=== PATIENT | female | born 1975 | race Caucasian/White ===

== ENCOUNTER 2017-11-23 14:12 | Outpatient (REF) | payer OTHER, SELFPAY ==
--- NOTE | 2017-11-23 14:00 | PAPFT_PTH ---
PATIENT: Irma Hernandes LOC: N U#:[id number] AGE/SX: 42/F ROOM: RE11/23/[address]: KALLIE Love : 1975 BED: DIS: 11/23/2017 SPEC #: [id number] RECD: 11/23/17 18:19 STATUS: LIZ REZuleyma #: [id number] CINDY: 11/23/17 14:[address]: Zainab Barnes [facility] Cytology RECD BY: Roxanna Starks ENTERED: 11/23/17 18:19 SP TYPE: PAPFT YAMILE DR: Di Sandhu Tissues: 1 - CX/ENDOCX FOR PAP SMEARS Procedures: PAP THIN PREP/[facility] Screening Comments: [id number]
== END 2017-11-23 14:32 ==
LOC: LBN 14:12
PROVIDERS: PCP Family Medicine; Visit Provider Nurse Practitioner Family
DX: Z12.4 Encounter for screening for malignant neoplasm of cervix (principal)
CPT/HCPCS: 88142

== ENCOUNTER 2018-12-29 00:12 | Outpatient (CLI) | payer OTHER, SELFPAY ==
--- NOTE | 2018-12-29 13:14 | DI.MAMMO_ITS ---
EXAM: MAMMO SCREENING CLINICAL HISTORY: Screening, Z12.31 TECHNIQUE: Mammograms were interpreted according to the usual protocol including computer analysis w [employer] CAD system, tomosynthesis and C-view imaging. COMPARISON: 2010 THROUGH 2016 FINDINGS: The breasts are composed of heterogeneously dense tissue, which may obscure small masses, breast dens ity category C. No suspicious masses or suspicious microcalcifications are seen. No skin thickening or abnormal axillary lymph nodes are seen. There has been no significant change from prior exams. IMPRESSION: Category 1, negative mammogram. Yearly screening mammography is recommended. BI-RADS Cat 1 - Negative Breast Density - Category B - Scattered areas of fibroglandular density
== END 2018-12-29 00:32 ==
PROVIDERS: PCP Family Medicine; Visit Provider Nurse Practitioner Family
DX: Z12.31 Encounter for screening mammogram for malignant neoplasm of breast (principal)
CPT/HCPCS: 77063; 77067

== ENCOUNTER 2018-12-29 15:09 | Outpatient (REF) | payer OTHER, SELFPAY ==
--- NOTE | 2018-12-29 14:15 | PAPFT_PTH ---
PATIENT: Irma Hernandes LOC: [facility] U#:[id number] AGE/SX: 43/F ROOM: RE12/29/[address]: KALLIE Love : 1975 BED: DIS: 12/29/2018 SPEC #: [id number] RECD: 12/29/18 17:37 STATUS: LIZ REZuleyma #: [id number] CINDY: 12/29/18 14:[address]: Zainab Barnes DEPT: [facility] Cytology RECD BY: Roxanna Starks ENTERED: 12/29/18 17:37 SP TYPE: PAPFT OTHR DR: Di Sandhu Tissues: 1 - CX/ENDOCX FOR PAP SMEARS Procedures: PAP THIN PREP/UVM Screening Comments: [id number]
[2018-12-30 15:42] LABS: Chlamydia Result Negative; GC Result Negative; Specimen Description URINE
== END 2018-12-29 15:29 ==
LOC: LBN 15:09
PROVIDERS: PCP Family Medicine; Visit Provider Nurse Practitioner Family
DX: Z12.4 Encounter for screening for malignant neoplasm of cervix; Z11.51 Encounter for screening for human papillomavirus (HPV); Z11.3 Encounter for screening for infections with a predominantly sexual mode of transmission
CPT/HCPCS: 87491; 87591; 88142

== ENCOUNTER 2020-01-09 01:17 | Outpatient (CLI) | payer OTHER, SELFPAY ==
--- NOTE | 2020-01-09 16:11 | DI.MAMMO_ITS ---
EXAM: MG MAMMO SCREENING CLINICAL HISTORY: screening TECHNIQUE: Mammograms were interpreted according to the usual protocol including computer analysis w [employer] CAD system, tomosynthesis and C-view imaging. COMPARISON: FINDINGS: The breasts are heterogeneously dense. No dominant mass or clumped microcalcification is identified in either breast. The current examination is compared with previous examinations including December 14 and there has been no gross interval change in appearance in comparison with the prior studies. IMPRESSION: No specific evidence of malignancy at this time. Routine screening examinations are suggested at yea rly intervals due To the family history of breast carcinoma. BI-RADS Category 1 - Negative Breast Density - Category C - Heterogeneously dense
== END 2020-01-09 01:37 ==
PROVIDERS: PCP Family Medicine; Visit Provider Nurse Practitioner Family
DX: Z12.31 Encounter for screening mammogram for malignant neoplasm of breast (principal); Z80.3 Family history of malignant neoplasm of breast
CPT/HCPCS: 77063; 77067

== ENCOUNTER 2020-01-09 15:49 | Outpatient (REF) | payer OTHER, SELFPAY ==
--- NOTE | 2020-01-09 15:00 | PAPFT_PTH ---
PATIENT: Irma Hernandes LOC: N U#:[id number] AGE/SX: 44/F ROOM: RE01/09/[address]: KALLIE Love : 1975 BED: DIS: 01/09/2020 SPEC #: [id number] RECD: 01/09/20 17:22 STATUS: LIZ REZuleyma #: [id number] CINDY: 01/09/20 15:[address]: Zainab Barnes DEPT: [facility] Cytology RECD BY: Roxanna Starks ENTERED: 01/09/20 17:23 SP TYPE: PAPFT OTHR DR: Di Sandhu Tissues: 1 - CX/ENDOCX FOR PAP SMEARS Procedures: PAP THIN PREP/UVM Screening HPV DNA PROBE Comments: [id number]
== END 2020-01-09 16:09 ==
LOC: LBN 15:49
PROVIDERS: PCP Family Medicine; Visit Provider Nurse Practitioner Family
DX: Z85.41 Personal history of malignant neoplasm of cervix uteri (principal); Z12.72 Encounter for screening for malignant neoplasm of vagina; Z90.710 Acquired absence of both cervix and uterus
CPT/HCPCS: 88142; 87624

== ENCOUNTER 2020-01-24 12:11 | Outpatient (REF) | payer OTHER, SELFPAY ==
[2020-01-24 14:17] LABS: Abs Immature Grans 0.02 10^3/uL (0.0-0.06); Absolute Basophil Count 0.05 10^3/uL (0.0-0.2); Absolute Lymphocyte Count 1.76 10^3/uL (1.2-3.4); Absolute Monocyte Count 0.38 10^3/uL (0.1-0.8); Absolute Neutrophil Count 5.21 10^3/uL (1.2-6.7); Basophils % 0.7; Eosinophils % 1.3; HCT 43.4 % (36.0-46.0); HGB 14.8 g/dL (11.2-15.7); Immature Grans % 0.3; Lymphocytes % 23.4; MCHC 34.1 % (32.0-36.0); Monocytes % 5.1; Neutrophils % 69.2; Nucleated RBC 0 %; Platelet Count 294 10^3/uL (130-400); RBC 4.93 10^6/uL (3.93-5.22); RDW 11.7 % (11.7-14.6); RDW-SD 37.7 fL; WBC 7.52 10^3/uL (4.4-10.8)
== END 2020-01-24 12:31 ==
LOC: LBN 12:11
PROVIDERS: PCP Family Medicine; Visit Provider Surgery
DX: K64.4 Residual hemorrhoidal skin tags (principal); K64.8 Other hemorrhoids
CPT/HCPCS: 85025

== ENCOUNTER 2021-02-07 22:41 | Emergency (ER) | payer OTHER, SELFPAY ==
[2021-02-07 22:46] VITALS: BP 158/77; PULSE 90; RESP 20; TEMP 36.4; O2SAT 99
[2021-02-07 22:50] VITALS: RESP 20
[2021-02-07] MEDS: Glucagon 1 MG VIAL IVP (23:10)
--- NOTE | 2021-02-07 23:13 | ED.GENADUL_ITS ---
Discharge Plan Disposition Patient Disposition: [facility] Condition: Serious Discharge Details Clinical Impression: Esophageal foreign body Primary Care Provider: Di Sandhu ED Provider: Roxanna Parsons Home Meds and New Rx's Prescriptions: No Action cholecalciferol (vitamin D3) 1,000 UNIT capsule 1,000 unit PO DAILY RF: 0 Medical Decision Making After a trial of 1 mg of glucagon, effervescent tablets, cola, we are unfortunately unsuccessful in dislodging suspected food bolus, patient will need EGD/GI or surgical intervention Surgery was continued on several occasions, unfortunately secondary to lack of availability we will need to transfer patient to a facility that has on-call surgical services, patient has requested [facility], I spoke with the ER attending, who has accepted patient in transfer and have a surgery team available to perform likely EGD for disimpaction Patient was initially requesting to transport herself via private vehicle with the assistance of her daughter, however on reassessment, patient is willing to be transported via EMS, transportation has been called Patient has been stable throughout this encounter Medical Records Medical records reviewed: Yes I reviewed the patient's medical records. HPI General Mode of arrival: ambulatory . Date/Time Provider Initiated Documentation: 02/07/21 22:43 . Limitations to Documentation: no limitations . Information obtained by: patient . HPI Narrative: This 45-year-old female p resents with reports food bolus. Patient reportedly had a piece of pot roast at plaque and felt it lodged in her esophagus. She states that she attempted:, Water without relief in symptoms. She is unable to tolerate anything p.o. denies difficulty breathing. She states this is happened before but never to this severity. She denies any chest pain or shortness of breath. She denies any dizziness or weakness. She denies any chance of . Related Data Home Medications Medication Instructions Recorded Confirmed cholecalciferol (vitamin D3) 1,000 unit PO DAILY 09/26/12 02/07/21 Allergies Allergy/AdvReac Type Severity Reaction Status Date / Time Penicillins Allergy Severe SOB Verified 02/07/21 22:48 sulfamethoxazole Allergy Intermediate RASH Verified 02/07/21 22:48 [From Bactrim] trimethoprim [From Bactrim] Allergy Intermediate RASH Verified 02/07/21 22:48 PET DANDER, RAG WEED, MOLD, Allergy Intermediate DIFFICULTY Uncoded 02/07/21 22:48 FEATHERS BREATHING General Stated Complaint: GenMedical OMARI: 4 Review of Systems All systems reviewed & are unremarkable except as noted in HPI and below PFSH Active Problem List (Updated 02/08/21 @ 00:08 by UMER Magdaleno) Esophageal foreign body (Acute) Internal and external bleeding hemorrhoids (Acute) Acquired absence of both cervix and uterus (Acute 09/22/11) History of cervical cancer (Chronic) Surgical History (Updated 12/29/18 @ 14:11 by Zainab Barnes NP) Vaginal hysterectomy (~2000) For CIS Family History Father Heart disease Maternal Aunt Stroke maternal Maternal Cousin No problems noted. Maternal Uncle Stroke maternal Social History (Updated 11/18/17 @ 15:40 by Valerie Khalil LPN) Smoking/Tobacco Use Status: Never Smoking risk assessment performed?: Yes Alcohol Intake: never Drug use: Never Substance use type: does not use Current gender identity: female Seatbelt use: always Do you feel safe at home: Yes Do you feel safe in your relationship?: Yes Female Reproductive History Menstrual Menopause type: surgical History History 4 Para Hx # Term Pregnancies 3 Multiple births Hx # Pregnancies Ectopic pregnancies AB induced Hx Number of Living Children AB spontaneous Exam Const General: cooperative and acute distress HENMT Other: No visible foreign body Neck Other: No stridor Resp Effort & Inspection: normal respiratory effort Auscultation: clear to auscultation bilaterally Cardio Rate: regular rate GI Inspection: normal to inspection Neuro General: patient alert and patient oriented x3 Course Vital Signs Vital signs: Vital Signs Temperature 36.4 C L 02/07/21 22:46 Pulse 90 02/07/21 22:46 Respiratory Rate 20 02/07/21 22:46 Blood Pressure 158/77 H 02/07/21 22:46 Pulse Oximetry 99 02/07/21 22:46 Temperature 36.4 C L 02/07/21 22:46 Temperature Source Temporal Artery Scan 02/07/21 22:46 Pulse 90 02/07/21 22:46 Respiratory Rate 20 02/07/21 22:50 Respiratory Effort Non-Labored 02/07/21 22:50 Respiratory Depth Normal 02/07/21 22:50 Respiratory Pattern Normal 02/07/21 22:50 Blood Pressure 158/77 H 02/07/21 22:46 Blood Pressure Position Sitting 02/07/21 22:46 Pulse Oximetry 99 02/07/21 22:46 Oxygen Delivery Method Room Air 02/07/21 22:46 Oxygen Flow Rate 0 02/07/21 22:46 Pain Level 0 02/07/21 22:46
[2021-02-08 00:29] LABS: Source Nasal/Nares
[2021-02-08 00:33] VITALS: O2SAT 98
[2021-02-08 01:13] LABS: COVID-19 PCR Negative (Negative)
== END 2021-02-08 00:31 | disposition short-term general hospital (02) ==
PROVIDERS: Emergency Provider Physician Assistant; PCP Family Medicine
DX: T18.128A Food in esophagus causing other injury, initial encounter (principal)
CPT/HCPCS: 87635; 96374; 99285; J1610

== ENCOUNTER → 2021-08-08 01:06 | Outpatient (CLI) | payer OTHER, SELFPAY ==
--- NOTE | 2021-08-08 08:00 | DI.MAMMO_ITS ---
Exam(s) MAMMO SCREENING EXAM: MAMMO SCREENING CLINICAL HISTORY: screening, Z12.39 TECHNIQUE: Mammograms were interpreted according to the usual protocol including computer analysis w [employer] CAD system, tomosynthesis and C-view imaging. COMPARISON: No exams were available for comparison FINDINGS: The breasts are composed of scattered fibroglandular densities, Breast Density category B. No suspicious masses or suspicious microcalcifications are seen. No skin thickening or abnormal axillary lymph nodes are seen. There has been no significant change from prior exams. IMPRESSION: BI-RADS Category 1, Negative mammogram Yearly screening mammography is recommended. Breast Density - Category B, scattered fibroglandular densities. A negative radiographic report should not delay biopsy if a dominant or clinically suspicious mass is present. Up to ten percent of cancers are not identified on mammography. A negative report may reinforce clinical impression. Adenosis and dense breasts may obscure an underlying neoplasm. False positive reports average 6 to 10%. Patient will receive a letter notifying them of these results.
== END ==
PROVIDERS: PCP Family Medicine; Visit Provider Nurse Practitioner Family
DX: Z12.31 Encounter for screening mammogram for malignant neoplasm of breast (principal)
CPT/HCPCS: 77063; 77067

== ENCOUNTER 2021-08-08 16:39 | Outpatient (REF) | payer OTHER, SELFPAY ==
--- NOTE | 2021-08-08 15:00 | PAPFT_PTH ---
PATIENT: Irma Hernandes LOC: [facility] U#:[id number] AGE/SX: 45/F ROOM: RE08/08/[address]: KALLIE Love : 1975 BED: DIS: 08/08/2021 SPEC #: [id number] RECD: 08/08/21 17:08 STATUS: LIZ REZuleyma #: [id number] CINDY: 08/08/21 15:[address]: Zainab Barnes DEPT: [facility] Cytology RECD BY: Roxanna Starks ENTERED: 08/08/21 17:08 SP TYPE: PAPFT OTHR DR: Di Sandhu Tissues: 1 - CX/ENDOCX FOR PAP SMEARS Procedures: PAP THIN PREP/UVM Screening HPV DNA PROBE Comments: [id number]
== END 2021-08-08 16:40 | disposition home or self-care (01) ==
LOC: LBN 16:39
PROVIDERS: PCP Family Medicine; Visit Provider Nurse Practitioner Family
DX: Z12.72 Encounter for screening for malignant neoplasm of vagina (principal); R87.620 Atypical squamous cells of undetermined significance on cytologic smear of vagina (ASC-US); Z11.51 Encounter for screening for human papillomavirus (HPV); Z85.41 Personal history of malignant neoplasm of cervix uteri
CPT/HCPCS: 88142; 87624

== ENCOUNTER → 2022-02-06 11:21 | Outpatient (CLI) | payer OTHER, SELFPAY ==
--- NOTE | 2022-02-06 | DI.RAD_ITS ---
Exam(s) XR CHEST 2V PA LATERAL EXAM: XR CHEST 2V PA LATERAL CLINICAL HISTORY: CHRONIC COUGH--R05.3 TECHNIQUE: 2D digital imaging was performed. COMPARISON: No exams were available for comparison FINDINGS: The heart is not enlarged. The lungs are clear and well expanded. No pleural effusion seen. Mediastin al contours appear intact. IMPRESSION: Normal chest. RADIATION DOSE DELIVERED: Total DLP
== END ==
PROVIDERS: PCP Family Medicine; Visit Provider Family Medicine
DX: R05.3 Chronic cough (principal)
CPT/HCPCS: 71046

== ENCOUNTER 2022-02-06 15:52 | Outpatient (REF) | payer OTHER, SELFPAY ==
[2022-02-06 13:58] LABS: HCT 42.9 % (36.0-46.0); HGB 14.4 g/dL (11.2-15.7); MCH 30.1 pg (27.0-33.0); MCHC 33.6 % (32.0-36.0); MCV 90 fL (80-95); MPV 9.8 fL (8.0-11.0); Platelet Count 334 10^3/uL (130-400); RBC 4.78 10^6/uL (3.93-5.22); RDW 11.4 % (11.7-14.6); RDW-SD 37.3 fL; WBC 5.61 10^3/uL (4.4-10.8)
[2022-02-06 14:17] LABS: ALT 29 U/L (14-59); AST 18 U/L (15-37); Albumin 4.2 g/dL (3.4-5.0); Alkaline Phosphatase 58 U/L (46-116); Anion Gap 4.9 mmol/L (3-11); BUN 8 mg/dL (7-18); Bilirubin, Total 0.9 mg/dL (0.2-1.0); CO2 31.1 mmol/L (21.0-32.0); CREATININE 0.8 mg/dL (0.55-1.02); Calcium 9.5 mg/dL (8.5-10.1); Calculated LDL 99 mg/dL (<100); Chloride 102 mmol/L (98-107); Cholesterol 180 mg/dL (<200); Estimated GFR 92.54 (mL/min/1.73m2); Glucose 89 mg/dL (74-106); HDL Cholesterol 62 mg/dL (40-60); Potassium 4.5 mmol/L (3.5-5.1); Sodium 138 mmol/L (136-145); TSH (W/Ref FT4) 1.52 uIU/mL (0.36-3.74); Total Protein 7.2 g/dL (6.4-8.2); Triglyceride 96 mg/dL (<150)
[2022-02-09 10:44] LABS: HIV-1/2 Ag & Ab Screen Negative (Negative)
[2022-02-09 10:49] LABS: Hepatitis C Ab w Rflx HCV PCR Negative (Negative)
== END 2022-02-06 15:53 | disposition home or self-care (01) ==
LOC: NCHCN 15:52
PROVIDERS: PCP Family Medicine; Visit Provider Family Medicine
DX: R53.83 Other fatigue (principal); R06.09 Other forms of dyspnea; R05.3 Chronic cough; Z00.00 Encounter for general adult medical examination without abnormal findings; Z11.59 Encounter for screening for other viral diseases; Z11.4 Encounter for screening for human immunodeficiency virus [HIV]
CPT/HCPCS: 80053; 80061; 85027; 86803; 87389; 84443

== ENCOUNTER 2022-05-19 02:37 | Outpatient (CLI) | payer OTHER, SELFPAY ==
--- NOTE | 2022-05-19 07:30 | DI.US_ITS ---
APPROVED REPORT EXAM: Comprehensive 2D, Doppler, and color-flow Echocardiogram Patient Location: Out-Patient Front End Drupal Developer: Christi Woo RDCS (AE) Indications: Chest pain, SOB, LUCERO post COVID Other Information Study Quality: Adequate Conclusion Normal left ventricular wall thickness and chamber size. Estimated ejection fraction is 60%. Wall m otion is normal Normal right ventricular size and systolic function Both atria are normal in size There is no structural or hemodynamically significant valvular disease Normal estimated right ventricular systolic pressure 22 mmHg Wall motion Left Ventricle The left ventricle is normal size. The left ventricular systolic function is normal. The left ventric ular ejection fraction is within the normal range. There is normal left ventricular wall thickness. T here is normal LV segmental wall motion. There is no ventricular septal defect visualized. LVEF is 60 %. Right Ventricle The right ventricle is normal size. The right ventricular systolic function is normal. The RVSP is 21 .9 mmHg. Atria The left atrium size is normal. The right atrium size is normal. The interatrial septum is intact wit h no evidence for an atrial septal defect. Aortic Valve The aortic valve is normal in structure. Aortic valve is trileaflet. There is no aortic valvular sten osis. No aortic regurgitation is present. Mitral Valve The mitral valve is normal in structure. No evidence of mitral valve stenosis. Mild mitral regurgitat ion. Tricuspid Valve The tricuspid valve is normal in structure. There is no tricuspid valve stenosis. Trace to mild tricu spid regurgitation. Pulmonic Valve The pulmonary valve is normal in structure. There is no pulmonic valvular stenosis. Mild pulmonic reg urgitation. Great Vessels The aortic root is normal in size. The ascending aorta is normal in size. Aortic arch is normal in ca liber. IVC is normal in size and collapses >50% with inspiration. Pericardium There is no pericardial effusion. 2D Dimensions IVSD d PLAX 0.81 cm F: 0.6-1.0 LV Vol A2C d MOD 103.5 mL LVPW d PLAX 0.84 cm F: 0.6 - 1.0 LV Vol A4C d MOD 96.4 mL LVID d PLAX 4.69 cm F: 3.8 - 5.2 LA vol/ BSA A2C s A-L 19.3 mL/m2 LVDs 3.05 cm F: 2.2 - 3.5 LA vol/ BSA A4C s A-L 20.4 mL/m2 Ao Root d 2.75 cm F: 2.7 - 3.3 LA Vol/ BSA Biplane s A-L 20.9 mL/m2 RA Area A4C 10.12 cm2 LA Area A4C s MOD 16.31 cm2 RA Vol/ BSA A4C s A-L 10.1 mL/m2 LA Area A2C s MOD 15.07 cm2 Ao Asc Diam d 3.06 cm F: 2.3 - 3.1 LV EF A4C MOD 60.0 % LV EF Teichholz 63.6 % LV EF A2C MOD 60.1 % LVEF (Gustafson's) 59.17 % F: 54 - 74 LV EF Biplane MOD 59.2 % LV Volume 75.95 mL F: 46 - 106 SV 59.70 mL LV Volume Index 38.35 mL/m2 F: 29 - 61 SV Index 30.17 mL/m2 LV Vol Biplane MOD 100.9 mL FS 34.50 % M-Mode TAPSE 2.04 cm (M/F) >1.7 LV Diastology MV E' medial 0.085 (>0.07 m/s) E/A Ratio 1.9 LV E/e MED 11.20 (<14) MV E Vmax 0.95 (0.4-1.3 m/s) MV E' lateral 0.173 (>0.1 m/s) MV A Vmax 0.50 (0.4-1.3 m/s) LV E/e LAT 5.50 (<14) MV E/A Ratio 1.74 MV E/E' medial 11.23 MV E/E' lateral 5.51 Aortic Valve LVOT Area 3.26 cm2 AoV Area Vmax 2.34 cm2 LVOT Vmax 1.20 m/s AoV Area/ BSA (Vmax) 1.18 cm2/m2 LVOT Mean Luis A. 0.81 m/s DARREL Mean Luis A. 2.26 cm2 LVOT Peak Grad 5.7 mmHg DARREL Mean Luis A. Index 1.14 cm2/m2 LVOT Mean Grad 3.0 mmHg LVOT VTI 0.307 m LVOT Diam s 2.00 cm AoV Vmax 1.66 m/s Velocity Ratio 0.72 AoV Mean Luis A. 1.16 m/s AoV Peak Grad 11.1 mmHg LVOT SV 100.13 mL AoV Mean Grad 5.9 mmHg AoV VTI 0.355 m AoV Area VTI 2.82 cm2 AoV Area/ BSA (VTI) 1.43 cm/m2 Mitral Valve MV DT 225 (160-240 msec) MV PHT 65 msec MV Area PHT 3.37 cm2 Pulmonary Valve PV Vmax 1.12 (0.5-1.5 m/s) RVOT Peak Gr. 2.40 mmHg PV Peak Grad 5.0 mmHg RVOT Mean Gr. 1.30 mmHg PV Mean Grad 2.6 mmHg RVOT VTI 0.211 m PV VTI 0.273 m RVOT Vmax 0.78 m/s Tricuspid Valve TR Peak Grad 18.9 mmHg TR Vmax 2.18 m/s RA Pressure 3.00 mmHg RVSP (TR) 21.9 mmHg
== END 2022-05-19 02:57 ==
PROVIDERS: PCP Family Medicine; Visit Provider Nurse Practitioner Family
DX: R07.9 Chest pain, unspecified (principal); R06.02 Shortness of breath; U09.9 Post COVID-19 condition, unspecified; R06.00 Dyspnea, unspecified
CPT/HCPCS: 93306

== ENCOUNTER 2022-06-09 17:20 | Outpatient (REF) | payer OTHER, SELFPAY ==
[2022-06-09 12:06] LABS: Abs Immature Grans 0.01 10^3/uL (0.0-0.06); Absolute Basophil Count 0.02 10^3/uL (0.0-0.2); Absolute Lymphocyte Count 2.29 10^3/uL (1.2-3.4); Absolute Monocyte Count 0.37 10^3/uL (0.1-0.8); Absolute Neutrophil Count 2.52 10^3/uL (1.2-6.7); Basophils % 0.4; Eosinophils % 1.9; HCT 41.6 % (36.0-46.0); HGB 14.6 g/dL (11.2-15.7); Immature Grans % 0.2; Lymphocytes % 43.1; MCH 30.3 pg (27.0-33.0); MCHC 35.1 % (32.0-36.0); MCV 86 fL (80-95); MPV 9.3 fL (8.0-11.0); Neutrophils % 47.4; Platelet Count 308 10^3/uL (130-400); RBC 4.82 10^6/uL (3.93-5.22); RDW 11.5 % (11.7-14.6); RDW-SD 36.1 fL; WBC 5.31 10^3/uL (4.4-10.8)
[2022-06-09 13:02] LABS: Vitamin D 25 Total 43.1 ng/mL (30-100)
[2022-06-09 13:08] LABS: Anion Gap 7.6 mmol/L (3-11); BUN 8 mg/dL (7-18); CO2 29.4 mmol/L (21.0-32.0); CREATININE 0.8 mg/dL (0.55-1.02); Calcium 9.4 mg/dL (8.5-10.1); Chloride 104 mmol/L (98-107); Estimated GFR 92.54 (mL/min/1.73m2); Glucose 92 mg/dL (74-106); Potassium 4.2 mmol/L (3.5-5.1); Sodium 141 mmol/L (136-145); Vitamin B12 1022 pg/mL (193-986)
[2022-06-10 11:15] LABS: IgE 9 IU/mL (<158)
== END 2022-06-09 17:21 | disposition home or self-care (01) ==
LOC: LBN 17:20
PROVIDERS: PCP Family Medicine; Visit Provider Student in an Organized Health Care Education/Training Program
DX: J45.909 Unspecified asthma, uncomplicated (principal); U09.9 Post COVID-19 condition, unspecified; E56.9 Vitamin deficiency, unspecified
CPT/HCPCS: 80048; 82306; 82607; 82785; 85025

== ENCOUNTER 2022-06-16 04:02 | Outpatient (CLI) | payer OTHER, SELFPAY ==
[2022-06-16] MEDS: Albuterol HFA 18 GM 200 PUFF INH IH (16:33)
[2022-06-16] MEDS: Inhaler, Assist Device 1 EACH MC (16:33)
--- NOTE | 2022-06-18 10:15 | W.PFT ---
Date of service: 06/16/22 Time of Service: 15:01 Pulmonary Function Test Result Indications: [facility] Interpretation Spirometry: There is moderate airflow limitation. No bronchodilator response. Flow volume loop is concerning for a fixed obstruction Lung Volumes: Normal volumes Diffusion Capacity: Normal diffusion Airway Pressure: Increased airways resistance Impression Moderate airflow obstruction with increased airways resistance and a flow volume loop concerning for fixed obstruction. Clinical Correlation therefore is recommended.
== END 2022-06-16 04:03 | disposition home or self-care (01) ==
LOC: RT 04:02
PROVIDERS: PCP Family Medicine; Visit Provider Student in an Organized Health Care Education/Training Program
DX: U09.9 Post COVID-19 condition, unspecified (principal)
CPT/HCPCS: 94060; 94726; 94729

== ENCOUNTER 2022-07-13 18:07 | Outpatient (REF) | payer OTHER, SELFPAY ==
[2022-07-13 18:28] LABS: ESR 8 mm/hr (0-20)
[2022-07-13 18:38] LABS: C-Reactive Protein 0.15 mg/dL (0.0-0.3)
[2022-07-15 13:00] LABS: Leukemia/Lymphoma by FC (Blood (See below)
== END 2022-07-13 18:08 | disposition home or self-care (01) ==
LOC: LBN 18:07
PROVIDERS: PCP Family Medicine; Visit Provider Student in an Organized Health Care Education/Training Program
DX: J38.6 Stenosis of larynx (principal)
CPT/HCPCS: 85652; 88185; 86140; 88184; 88189

== ENCOUNTER 2022-10-02 02:24 | Outpatient (CLI) | payer OTHER, SELFPAY ==
[2022-10-02] MEDS: Albuterol HFA 18 GM 200 PUFF INH IH (16:58)
[2022-10-02] MEDS: Inhaler, Assist Device 1 EACH MC (16:58)
--- NOTE | 2022-10-05 16:18 | W.PFT ---
Date of service: 10/02/22 Time of Service: 15:32 Pulmonary Function Test Result Indications: Idiopathic subglottic tracheal stenosis Interpretation Spirometry: There is no airflow limitation. No significant bronchodilator response. Lung Volumes: Normal lung volumes Diffusion Capacity: Normal diffusion Airway Pressure: Normal airways resistance Impression Normal pulmonary function testing. Note: As compared to 06/16/22, the flow volume loop no longer appears to have a fixed obstruction and her airways resistance is significantly improved. The remained of her lung function is stable. Clinical Correlation therefore is recommended.
== END 2022-10-02 02:25 | disposition home or self-care (01) ==
LOC: RT 02:25
PROVIDERS: PCP Family Medicine; Visit Provider Student in an Organized Health Care Education/Training Program
DX: Q31.1 Congenital subglottic stenosis (principal)
CPT/HCPCS: 94060; 94726; 94729

== ENCOUNTER → 2023-03-24 02:20 | Outpatient (CLI) | payer OTHER, SELFPAY ==
--- NOTE | 2023-03-24 10:33 | DI.RAD_ITS ---
Exam(s) RF BARIUM SWALLOW EXAM: RF BARIUM SWALLOW CLINICAL HISTORY: H/O esophageal dilation,ESOPHAGEAL FOREIGN BODY,SUBLOTTIC STENOSIS,t18.108A TECHNIQUE: 2D and realtime digital imaging was performed. CONTRAST MATERIAL: Oral barium contrast was administered. COMPARISON: No exams were available for comparison FINDINGS: CHEST X-RAY: The heart and pulmonary vasculature are within normal limits. The lungs are clear. No pl eural effusion or pneumothorax is present. The bones are within normal limits for the patient's age. ESOPHAGRAM: The esophagus is patent with no evidence for erosions, fold thickening, strictures, or ma sses. With regards to the motility, there is a normal primary stripping wave. No tertiary contraction s were noted. There does appear to be a small hiatal hernia. No gastroesophageal reflux is present. IMPRESSION: 1. Normal esophogram 2. No evidence of esophageal stenosis/narrowing. RADIATION DOSE DELIVERED: chintan Tucker=18.8 mGy
[2023-03-24] MEDS: Barium Sulfate 700 MG TAB PO (10:34)
[2023-03-24] MEDS: Barium Sulfate 98% W/W 140 ML BTL PO (10:35)
[2023-03-24] MEDS: Barium Sulfate 60% W/V 355 ML BTL PO (10:35)
== END ==
PROVIDERS: PCP Family Medicine; Visit Provider Physician Assistant Surgical
DX: J38.6 Stenosis of larynx (principal); K44.9 Diaphragmatic hernia without obstruction or gangrene; Z98.890 Other specified postprocedural states
CPT/HCPCS: 74221; J3490

== ENCOUNTER 2023-09-16 01:02 | Outpatient (CLI) | payer OTHER, SELFPAY ==
[2023-09-16] MEDS: Levalbuterol HFA 15 GM INH 4 PUFF IH (09:29)
[2023-09-16] MEDS: Inhaler, Assist Device 1 EACH MC (09:29)
--- NOTE | 2023-09-21 11:12 | W.PFT ---
Date of service: 09/16/23 Time of Service: 08:00 Pulmonary Function Test Result Requesting Provider Janeth Hughes Indications: Tracheal Stenosis Interpretation Spirometry: Normal Lung Volumes: Normal Diffusion Capacity: normal Impression Normal spirometry, lung volumes and diffusion. Flow volume curve has flattening of inspiratory and expiratory curve c/w her hx/o tracheal stenosis. Clinical Correlation therefore is recommended.
== END 2023-09-16 01:03 | disposition home or self-care (01) ==
PROVIDERS: PCP Family Medicine; Visit Provider Physician Assistant Surgical
DX: J39.8 Other specified diseases of upper respiratory tract (principal)
CPT/HCPCS: 00123; 94060; 94726; 94729

== ENCOUNTER 2024-03-21 10:40 | Emergency (ER) | payer OTHER, SELFPAY ==
[2024-03-21] VITALS (13 sets, daily range): BP systolic 196; BP diastolic 78; PULSE 59–68; RESP 10–22; TEMP 36.8; O2SAT 98–100
--- NOTE | 2024-03-21 10:30 | RT.EKG_ITS ---
APPROVED REPORT Exam: Resting ECG Reason for Exam: SOB Patient Location: E HR:68 bpm ECG Measurements Heart Rate 68 AXIS OH 138 P 47 QRSd 86 QRS 41 QT 402 T 52 QTc 427 Conclusion Sinus rhythm...normal P axis, V-rate 60- 99 No STEMI
--- NOTE | 2024-03-21 11:00 | DI.RAD_ITS ---
Exam(s) XR CHEST 2V PA LATERAL EXAM: XR CHEST 2V PA LATERAL CLINICAL HISTORY: Chest pain TECHNIQUE: 2D digital imaging was performed of the chest. Two images were obtained. PA and lateral views were obtained. COMPARISON: CR XR CHEST 2V PA LATERAL from 02/06/2022 FINDINGS: MEDIASTINUM: Normal. HEART: Normal. PULMONARY VASCULATURE: Normal. LUNGS: Clear. PLEURAL SPACE: No pleural effusion or pneumothorax. BONE:Within normal limits for the patient's age. OTHER FINDINGS:Normal. IMPRESSION: No acute pulmonary findings. DATA REPOSITORY: RADIATION DOSE DELIVERED:
[2024-03-21 11:18] LABS: Abs Immature Grans 0.03 10^3/uL (0.0-0.06); Absolute Basophil Count 0.04 10^3/uL (0.0-0.2); Absolute Eosinophil Count 0.25 10^3/uL (0.0-0.7); Absolute Lymphocyte Count 2.46 10^3/uL (1.2-3.4); Absolute Monocyte Count 0.49 10^3/uL (0.1-0.8); Absolute Neutrophil Count 4.17 10^3/uL (1.2-6.7); Basophils % 0.5 %; Eosinophils % 3.4 %; HCT 42.6 % (36.0-46.0); HGB 14.9 g/dL (11.2-15.7); Immature Grans % 0.4 %; Lymphocytes % 33.1 %; MCH 30.5 pg (27.0-33.0); MCV 87 fL (80-95); MPV 9.1 fL (8.0-11.0); Monocytes % 6.6 %; Platelet Count 279 10^3/uL (130-400); RBC 4.88 10^6/uL (3.93-5.22); RDW 11.4 % (11.7-14.6); RDW-SD 36.8 fL; WBC 7.44 10^3/uL (4.4-10.8)
[2024-03-21 11:36] LABS: HCG Qual (Serum) Negative
[2024-03-21 11:41] LABS: Anion Gap 6.4 mmol/L (3-11); BUN 10 mg/dL (7-18); CO2 29.6 mmol/L (21.0-32.0); CREATININE 0.8 mg/dL (0.55-1.02); Calcium 9.7 mg/dL (8.5-10.1); Chloride 103 mmol/L (98-107); Glucose 106 mg/dL (74-106); Lipase 27 U/L (<78); Potassium 3.6 mmol/L (3.5-5.1); Sodium 139 mmol/L (136-145); Troponin I 6 ng/L (<or=51)
[2024-03-21 12:30] LABS: Troponin I 4 ng/L (<or=51)
--- NOTE | 2024-03-21 12:33 | ED.GENADUL_ITS ---
Discharge Plan Disposition Patient Disposition: Home Discharge Details Clinical Impression: Chest pain, unspecified Primary Care Provider: Di Sandhu ED Provider: Bunny West Home Meds and New Rx's Prescriptions: Continued tumeric 500 mg PO DAILY zinc gluconate 50 mg tablet 50 mg PO DAILY budesonide 0.25 mg/2 mL suspension for nebulization 0.25 mg inhalation BID Qty: 60 6RF cholecalciferol (vitamin D3) 1,000 UNIT capsule 1,000 unit PO DAILY pantoprazole 40 mg tablet,delayed release (DR/EC) 40 mg PO DAILY PRN Discharge Instructions Instructions: Chest pain Additional Instructions: You are seen in the emergency department for your chest pain. Your blood work shows no sign of a heart attack. Your x-ray showed no sign of pneumonia. Please follow-up with your primary care provider later this month. Please return to emergency department if you develop shortness of breath or if you pass out. Discharge Data Discharge Date/Time-TO BE ENTERED AT DEPARTURE: 03/21/24 12:50 HPI General Date/Time Provider Initiated Documentation: 03/21/24 10:54 . HPI Narrative: MDM This is an overall very well-appearing normothermic and not tachycardic 48-year-old female with chest pain concerning for the possibility of ACS for which patient had 2 troponins which were negative and reassuring against ACS. She had a nonischemic ECG. I considered PE however she is PERC negative so I did not send a D-dimer. No trauma to chest to suggest pneumothorax and chest x- ray is reassuring. No fevers or cough to suggest pneumonia. Not hypotensive nor a dialysis patient to suggest increased risk for cardiac tamponade. No history of recent emesis to suggest increased risk for esophageal rupture. No rash to chest to suggest zoster. I met with the patient and discussed her reassuring evaluation. I discussed that she should follow-up with her primary care provider in the next month. I advised that she should return to the ED if she developed chest pain associated with arm pain if she passed out or develops any chest pain associated with sweating. She understood her return indications and was discharged with empiric trial of expectant outpatient management. Diagnostic interpretations performed by me: Per my independent interpretation chest x-ray shows: No acute cardiopulmonary process Per my independent interpretation EKG shows: Narrow complex normal sinus rhythm at a rate of 68. Normal axis. Intervals within normal limits. No ST segment abnormalities. No T wave versions HPI The patient presents for evaluation of chest pain and shortness of breath. She reports experiencing intermittent chest pain and shortness of breath, which she attributes to her known condition of idiopathic systolic murmurs. She underwent a medical procedure 3 weeks prior, after which she expected her symptoms to subside. However, the chest pain has persisted. She did not experience chest pain on the day of the procedure. She recalls an episode of vomiting due to severe coughing prior to the procedure. She reports no recent infections or fevers, although she notes that her temperature was slightly elevated at 99 during a pulmonology visit, compared to her usual baseline of 97. She reports no history of high cholesterol, diabetes, or hypertension, and has not had blood work done since 2020, at which time all results were normal. She is a non-smoker and does not consume alcohol or use illicit drugs. She reports no presence of a rash on her chest or any history of thromboembolic events in her legs or lungs. She is not currently on hormone therapy and has not experienced any trauma to her chest. Exam General: Well-appearing in no acute distress speaking in complete sentences. Head: Normocephalic, atraumatic. Eye: Extraocular eye movements intact. No conjunctival injection. No scleral icterus. Ear, nose, mouth, throat: Grossly normal inspection. Normal voice, handling secretions normally. Neck: Trachea midline. Cardiovascular: Well-perfused distal extremities. Regular rate and rhythm Respiratory: Nonlabored respiration. Clear lungs bilaterally Gastrointestinal: Nondistended abdomen. Musculoskeletal: No edema. Moving all 4 extremities spontaneously. Skin: Normal for age and race, grossly normal temperature and turgor. No acute rash. Neurologic: Alert and appropriate, no apparent acute deficits. Psychiatric: Mood and manner are appropriate. Grooming and personal hygiene are appropriate. Related Data Home Medications ?Medication ?Instructions ?Recorded ?Confirmed cholecalciferol (vitamin D3) 25 1,000 unit PO DAILY 09/26/12 03/21/24 mcg (1,000 unit) capsule tumeric 500 mg PO DAILY 06/09/22 03/21/24 zinc gluconate 50 mg tablet 50 mg PO DAILY 03/16/23 03/21/24 pantoprazole 40 mg tablet,delayed 40 mg PO DAILY PRN 03/13/24 03/21/24 release budesonide 0.25 mg/2 mL suspension 0.25 mg (2 mL) inhalation BID #60 03/16/24 03/21/24 for nebulization mL Previous Rx's ?Medication ?Instructions ?Recorded budesonide 0.25 mg/2 mL suspension 0.25 mg (2 mL) inhalation BID #60 03/16/24 for nebulization mL Allergies Allergy/AdvReac Type Severity Reaction Status Date / Time Penicillins Allergy Severe SOB Verified 03/21/24 12:03 sulfamethoxazole (From Allergy Intermediate RASH Verified 03/21/24 12:03 Bactrim) trimethoprim (From Bactrim) Allergy Intermediate RASH Verified 03/21/24 12:03 PET DANDER, RAG WEED, MOLD, Allergy Intermediate DIFFICULTY Uncoded 03/21/24 12:03 FEATHERS BREATHING General Stated Complaint: SOB/SuddenOnset MOARI: 3 Course Vital Signs Vital signs: Vital Signs Temperature 36.8 C 03/21/24 10:43 Pulse 68 03/21/24 10:43 Respiratory Rate 20 03/21/24 10:43 Blood Pressure 196/78 H 03/21/24 10:43 Pulse Oximetry 100 03/21/24 10:43 Temperature 36.8 C 03/21/24 10:43 Pulse 68 03/21/24 10:43 Pulse 68 03/21/24 12:30 Respiratory Rate 18 03/21/24 12:30 Respiratory Effort Normal, Non-Labored 03/21/24 10:58 Respiratory Depth Normal 03/21/24 10:58 Respiratory Pattern Tachypnea 03/21/24 10:58 Blood Pressure 196/78 H 03/21/24 10:43 Blood Pressure Position Sitting 03/21/24 10:43 Pulse Oximetry 98 03/21/24 12:30 Oxygen Delivery Method Room Air 03/21/24 10:43 Oxygen Flow Rate 0 03/21/24 10:43 Pain Level 4 03/21/24 10:43 Lab/Test Results Lab/Test Results: Laboratory Tests Range/Units 03/21/24 03/21/24 10:55 11:58 WBC (4.4-10.8) 10^3/uL 7.44 RBC (3.93-5.22) 10^6/uL 4.88 Hgb (11.2-15.7) g/dL 14.9 Hct (36.0-46.0) % 42.6 MCV (80-95) fL 87 MCH (27.0-33.0) pg 30.5 MCHC (32.0-36.0) % 35.0 RDW (11.7-14.6) % 11.4 L Plt Count (130-400) 10^3/uL 279 MPV (8.0-11.0) fL 9.1 Immature Gran % % 0.4 Neutrophils % % 56.0 Lymphocytes % % 33.1 Monocytes % % 6.6 Eosinophils % % 3.4 Basophils % % 0.5 Nucleated RBC % (0.0-0.3) % 0.0 Absolute Neutrophils (1.2-6.7) 10^3/uL 4.17 Absolute Lymphocytes (1.2-3.4) 10^3/uL 2.46 Absolute Monocytes (0.1-0.8) 10^3/uL 0.49 Absolute Eosinophils (0.0-0.7) 10^3/uL 0.25 Absolute Basophils (0.0-0.2) 10^3/uL 0.04 Sodium (136-145) mmol/L 139 Potassium (3.5-5.1) mmol/L 3.6 Chloride (98-107) mmol/L 103 Carbon Dioxide (21.0-32.0) mmol/L 29.6 Anion Gap (3-11) mmol/L 6.4 BUN (7-18) mg/dL 10 Creatinine (0.55-1.02) mg/dL 0.8 Est GFR (CKD-EPI 2020) (mL/min/1.73m2) 91.40 Glucose (74-106) mg/dL 106 Calcium (8.5-10.1) mg/dL 9.7 Troponin I (<or=51) ng/L 6 4 Lipase (<78) U/L 27 Serum HCG, Qual Negative Medical Decision Making Quality:SDOH Health Related Social Needs: No Data to Display PFSH All Active Problems (Updated 03/21/24 @ 12:34 by Bunny West MD) Chest pain, unspecified (Acute) Idiopathic subglottic tracheal stenosis (Acute) Subglottic stenosis (Acute) Airway obstruction (Acute) Stridor (Acute) Vitamin deficiency (Acute) Asthma (Chronic) 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) Obesity (Chronic) GERD (gastroesophageal reflux disease) (Chronic) Allergic rhinitis (Acute) Chronic cough (Acute) SOB (shortness of breath) (Acute) Chest pain (Acute) other pain Esophageal foreign body (Acute) Internal and external bleeding hemorrhoids (Acute) Acquired absence of both cervix and uterus (Acute 09/22/11) History of cervical cancer (Chronic) Surgical History Vaginal hysterectomy (~2000) For CIS Family History (Updated 06/09/22 @ 10:30 by Edwige Aceves) Father Heart disease Maternal Aunt Stroke maternal Maternal Uncle Stroke maternal Heart disease Social History Smoking/Tobacco Use Status: Never Smoking risk assessment performed?: Yes Alcohol Intake: never Drug use: Never Substance use type: does not use Housing: house Current gender identity: female Seatbelt use: always Do you feel safe at home: Yes Do you feel safe in your relationship?: Yes Female Reproductive History Menstrual Menopause type: surgical History History 4 Para Hx # Term Pregnancies 3 Multiple births Hx # Pregnancies Ectopic pregnancies AB induced Hx Number of Living Children AB spontaneous
== END 2024-03-21 12:50 | disposition home or self-care (01) ==
PROVIDERS: Emergency Provider Emergency Medicine; PCP Family Medicine
DX: R07.9 Chest pain, unspecified (principal); R06.02 Shortness of breath
CPT/HCPCS: 36415; 80048; 83690; 93005; 99284; 71046; 84484; 84703; 85025; 93010; 99283

== ENCOUNTER 2024-05-19 21:46 | Outpatient (REF) | payer OTHER, SELFPAY ==
[2024-05-19 23:08] LABS: Hemoglobin A1C 5.8 % (<5.7)
== END 2024-05-19 21:47 | disposition home or self-care (01) ==
LOC: NCHCN 21:46
PROVIDERS: PCP Family Medicine; Visit Provider Family Medicine
DX: R63.5 Abnormal weight gain (principal)
CPT/HCPCS: 83036; 84443

== ENCOUNTER 2024-06-12 01:18 | Outpatient (CLI) | payer OTHER, SELFPAY ==
--- NOTE | 2024-06-12 | DI.MAMMO_ITS ---
Exam(s) MAMMO SCREENING EXAM: MAMMO SCREENING CLINICAL HISTORY: Screening, Z12.31 TECHNIQUE: Bilateral full field digital CC and MLO mammographic images were obtained with 3D tomosyn thesis and utilizing computer aided detection (CAD). COMPARISON: Available for comparison. FINDINGS: Masses/Architectural Distortion: None seen. Microcalcifications: No suspicious pleomorphic-type are seen. Skin Thickening/Nipple Retraction: None. IMPRESSION: 1. No significant interval change with no specific features of malignancy noted. 2. Unless there is more urgent need, screening mammography is recommended, as per [employer] guidelines. BI-RADS Category 1 - Negative Breast Density - Category B - Scattered areas of fibroglandular density Breast density category C or D implies that the patient has dense breast tissue. Dense breast tissue is very common and is not abnormal but dense breast tissue can make it harder to find cancer on a ma mmogram. Also, dense breast tissue may increase their breast cancer risk. This information about the result of the mammogram report was provided to the patient to raise their awareness. Use this report when you speak with the patient about their risks for breast cancer, which includes their family hist ory. At that time, you may recommend for more screening tests (Ultrasound or MRI) as they might be us eful based on their risk. A negative radiographic report should not delay biopsy if a dominant or clinically suspicious mass is present. Up to ten percent of cancers are not identified on mammography. A negative report may reinforce clinical impression. Adenosis and dense breasts may obscure an underlying neoplasm. False positive reports average 6 to 10%. Patient will receive a letter notifying them of these results.
== END 2024-06-12 01:38 ==
LOC: DI 01:18
PROVIDERS: PCP Family Medicine; Visit Provider Family Medicine
DX: Z12.31 Encounter for screening mammogram for malignant neoplasm of breast (principal); R92.323 Mammographic fibroglandular density, bilateral breasts
CPT/HCPCS: 77063; 77067

== ENCOUNTER 2025-02-14 10:41 | Outpatient (REF) | payer OTHER, SELFPAY | END 2025-02-14 10:42 | disposition home or self-care (01) | LOC: NCHCN 10:41 | PROVIDERS: PCP Family Medicine; Visit Provider Family Medicine | DX: I10 Essential (primary) hypertension (principal) | CPT/HCPCS: 82043; 82570 ==

== ENCOUNTER 2025-02-15 01:49 | Outpatient (CLI) | payer OTHER, SELFPAY ==
[2025-02-15 08:15] LABS: HCT 43.1 % (36.0-46.0); HGB 14.3 g/dL (11.2-15.7); MCH 28.9 pg (27.0-33.0); MCHC 33.2 % (32.0-36.0); MCV 87 fL (80-95); MPV 8.9 fL (8.0-11.0); Platelet Count 293 10^3/uL (130-400); RBC 4.95 10^6/uL (3.93-5.22); RDW 11.7 % (11.7-14.6); RDW-SD 37.5 fL; WBC 4.93 10^3/uL (4.4-10.8)
[2025-02-15 08:52] LABS: ALT 32 U/L (10-49); AST 21 U/L (<34); Albumin 4.4 g/dL (3.2-5.0); Alkaline Phosphatase 71 U/L (46-116); Anion Gap 6.9 mmol/L (3-11); BUN 10 mg/dL (9-23); Bilirubin, Total 1.30 mg/dL (0.2-1.2); CO2 29.1 mmol/L (20.0-31.0); Calcium 9.1 mg/dL (8.3-10.6); Chloride 104 mmol/L (98-107); Glucose 98 mg/dL (74-106); Potassium 4.2 mmol/L (3.5-5.1); Sodium 140 mmol/L (136-145); TSH (W/Ref FT4) 3.14 uIU/mL (0.55-4.78); Total Protein 7.0 g/dL (5.7-8.2)
[2025-02-15 09:51] LABS: Hemoglobin A1C 5.7 % (<5.7)
== END 2025-02-15 01:50 | disposition home or self-care (01) ==
LOC: LBO 01:49
PROVIDERS: PCP Family Medicine; Visit Provider Family Medicine
DX: I10 Essential (primary) hypertension (principal); R73.03 Prediabetes
CPT/HCPCS: 36415; 80053; 85027; 82088; 83036; 84443

== ENCOUNTER 2025-03-02 00:33 | Outpatient (CLI) | payer OTHER, SELFPAY ==
[2025-03-09 10:20] LABS: Renin Activity, Plasma 2.1 ng/mL/h
== END 2025-03-02 00:34 | disposition home or self-care (01) ==
LOC: LBO 00:34
PROVIDERS: PCP Family Medicine; Visit Provider Family Medicine
DX: I10 Essential (primary) hypertension (principal)
CPT/HCPCS: 36415; 82088; 84244